=== PATIENT | male | born 1955 | race Hispanic/Latino ===

== ENCOUNTER → 2024-04-19 | Outpatient (CLI) | payer MEDICARE ==
[~2024-04-19] MED LIST: CARV25TA PO; CHLO25TA3 PO; GABA-531 PO; IOHEXOL 350 MG/ML 100ML INFUS..BTL IV ONE; LOSA100T59 PO; METF-444 PO; METOPROLOL TARTRATE 1 MG/ML 5ML VIAL IV ONE; PRAV20TA4 PO
== END | disposition home or self-care (01) ==
LOC: RAH 08:31
PROVIDERS: ATTEND Internal Medicine Cardiovascular Disease
DX: R06.02 Shortness of breath (principal)
CPT/HCPCS: J3490; Q9967